=== PATIENT | female | born 1985 | race African-American/Black ===

== ENCOUNTER 2018-07-31 08:33 | Emergency (ER) | payer MEDICAID ==
[~2018-07-31] VITALS: Ht 162.6 cm; Wt 86.2 kg
[2018-07-31 08:45] VITALS: BP 113/87
[2018-07-31] MEDS ORDERED: LORazepam 0.5 MG TAB PO ONE (09:30)
[2018-07-31 09:46] LABS: Basophils # (auto) 0.1 uL; Basophils % (auto) 0.8 % (0.0-2.0); Eosinophils # (auto) 0.2 uL; Eosinophils % (auto) 2.1 % (0.0-7.0); Hematocrit 40.1 % (36.0-46.0); Hemoglobin 13.4 g/dL (12.2-16.2); Lymphocytes # (auto) 2.5 uL; Lymphocytes % (auto) 26.8 % (10.0-50.0); Mean Corpuscular Hemoglobin 27.9 pg (28.0-32.0); Mean Corpuscular Hgb Conc. 33.3 g/dL (32.0-36.0); Mean Corpuscular Volume 83.8 fL (80.0-100.0); Monocytes # (auto) 0.3 uL; Monocytes % (auto) 3.4 % (0.0-12.0); Neutrophils # (auto) 6.2 uL; Neutrophils % (auto) 66.9 % (37.0-80.0); Nucleated Red Blood Cells % 0.1 %; Platelet Count (auto) 272 10^3/uL (140-450); Red Blood Cells 4.78 10^6/uL (4.0-5.20); Red Cell Distribution Width 13.6 % (11.8-14.3); White Blood Cell 9.3 10^3/uL (4.4-10.8)
== END 2018-07-31 10:32 | disposition left against medical advice (07) ==
LOC: ER 08:38
DX: R42 Dizziness and giddiness (principal); R51 Headache; F41.9 Anxiety disorder, unspecified
CPT/HCPCS: 36415; 84702; 85025; 93005

== ENCOUNTER 2019-01-20 07:44 | Emergency (ER) | payer OTHER, MEDICAID ==
[~2019-01-20] VITALS: Ht 162.6 cm; Wt 90.7 kg
[2019-01-20 08:25] LABS: Urine Amorphous Crystal FEW /hpf (None Seen); Urine Bacteria NONE SEEN /hpf (None Seen); Urine Blood Negative /uL (Negative); Urine WBC 5 /hpf (0 - 5)
[2019-01-20 08:34] VITALS: BP 132/74
[2019-01-20 08:41] LABS: Basophils # (auto) 0.1 uL; Eosinophils # (auto) 0.2 uL; Eosinophils % (auto) 1.7 % (0.0-7.0); Hematocrit 42.5 % (36.0-46.0); Hemoglobin 13.7 g/dL (12.2-16.2); Lymphocytes # (auto) 2.6 uL; Lymphocytes % (auto) 26.7 % (10.0-50.0); Mean Corpuscular Hemoglobin 27.2 pg (28.0-32.0); Mean Corpuscular Hgb Conc. 32.3 g/dL (32.0-36.0); Mean Corpuscular Volume 84.1 fL (80.0-100.0); Monocytes # (auto) 0.4 uL; Monocytes % (auto) 3.8 % (0.0-12.0); Neutrophils # (auto) 6.4 uL; Neutrophils % (auto) 66.8 % (37.0-80.0); Platelet Count (auto) 283 10^3/uL (140-450); Red Blood Cells 5.06 10^6/uL (4.0-5.20); Red Cell Distribution Width 13.7 % (11.8-14.3); White Blood Cell 9.6 10^3/uL (4.4-10.8)
[2019-01-20 08:56] LABS: Albumin 3.7 g/dL (3.4-5.0); Calcium 9.3 mg/dL (8.5-10.1); Potassium 4.1 mmol/L (3.5-5.1)
[2019-01-20 09:00] LABS: BUN/Creatinine Ratio 7.5; Bilirubin, Total 0.3 mg/dL (0.2-1.0); Total Protein 7.7 g/dL (6.4-8.2)
== END 2019-01-20 10:23 | disposition home or self-care (01) ==
LOC: ER 07:48
DX: O26.891 Other specified pregnancy related conditions, first trimester (principal); O23.41 Unspecified infection of urinary tract in pregnancy, first trimester; M54.5 Low back pain; Z3A.01 Less than 8 weeks gestation of pregnancy
CPT/HCPCS: 36415; 76801; 80053; 81001; 81025; 84702; 85025